=== PATIENT | male | born 1970 | race Caucasian/White ===

== ENCOUNTER 2021-05-31 10:48 | Outpatient (CLI) | payer MEDICARE, SELFPAY ==
[2021-05-31 11:28] VITALS: BP 129/78; PULSE 100; RESP 20; TEMP 39; O2SAT 93; BMI 36.6
[2021-05-31 11:56] VITALS: BP 121/72; PULSE 90; RESP 20; O2SAT 92
[2021-05-31 12:59] VITALS: BP 119/75; PULSE 87; RESP 20; TEMP 36.6; O2SAT 92
== END 2021-05-31 10:49 | disposition home or self-care (01) ==
LOC: OPS 10:51
PROVIDERS: PCP Family Medicine; Visit Provider Family Medicine
DX: U07.1 COVID-19 (principal)
CPT/HCPCS: 96365

== ENCOUNTER 2022-11-04 13:02 | Outpatient (CLI) | payer MEDICARE, SELFPAY | END 2022-11-04 13:03 | disposition home or self-care (01) | PROVIDERS: PCP Family Medicine; Visit Provider Nurse Practitioner Family | DX: A54.9 Gonococcal infection, unspecified (principal); A74.9 Chlamydial infection, unspecified | CPT/HCPCS: 87491; 87591 ==

== ENCOUNTER 2023-12-10 23:15 | Emergency (ER) | payer MEDICARE, SELFPAY ==
[2023-12-10 23:21] VITALS: BP 125/89; PULSE 76; RESP 24; TEMP 36.6; O2SAT 95; BMI 36.6
--- NOTE | 2023-12-10 23:32 | ECG_ITS ---
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 Measurements Intervals [place] Rate: 76 P: 75 [place]: 173 QRS: 11 QRSD: 94 T: 60 QT: 362 QTc: 409 Interpretive Statements SINUS RHYTHM Compared to ECG 09/26/2017 05:04:31 Sinus bradycardia no longer present Electronically Signed On 12-11-2023 11:25:58 CDT by Abrahan Flores M.D. [id number]
--- NOTE | 2023-12-10 23:32 | XRR_ITS ---
PROCEDURE INFORMATION: Exam: XR Chest Exam date and time: 12/10/2023 11:35 PM Age: 53 years old Clinical indication: Chest pressure; Patient HX: C/O chest pain TECHNIQUE: Imaging protocol: Radiologic exam of the chest. Views: 1 view. COMPARISON: CR XR chest 1V [id number] 09/25/2017 11:28 PM FINDINGS: Lungs: Minimal left lower lobe opacity could represent minimal atelectasis.. No consolidation. Pleural spaces: Unremarkable. No pleural effusion. No pneumothorax. Heart/Mediastinum: The cardiomediastinal silhouette is stable in appearance. Bones/joints: Unremarkable. XR/XR chest 1V portable [id number] IMPRESSION: No acute radiographic findings in the chest.
[2023-12-11] VITALS (9 sets, daily range): BP systolic 88–135; BP diastolic 54–87; PULSE 52–76; RESP 9–18; O2SAT 90–95
--- NOTE | 2023-12-11 00:03 | ED_ITS ---
HPI - Chest Pain 2 General: Chief Complaint: Chest Pain Stated Complaint: Chest Pain Time Seen by Provider: 12/10/23 23:32 History of Present Illness: 53-year-old male patient with no prior h istory of coronary disease. He presents with left-sided chest pain radiating to his left arm. This been going on since this afternoon he said. It seemed to let up for a while, but came back this evening. It was much worse while getting gas tonight. The patient was breathing heavy because of the pain. He felt some numbness to his face, and says that he passed out for a second and some people at the gas station helped him up. He has not had pain like this before. It seems to be worse with breathing. He denies significant cough. He denies vomiting. He denies lower extremity swelling. Associated symptoms: Reports dyspnea and syncope; Deny abdominal pain, fever(s), nausea, palpitations or vomiting Review of Systems 2 Const: Denies: fever(s), chills or body aches Eyes: Denies: change in vision Card: Reports: chest pain and syncope; Denies: palpitations Resp: Reports: dyspnea; Denies: productive cough, non-productive cough or wheezing GI: Denies: abdominal pain, nausea, vomiting, diarrhea or hematochezia Skin/Breast: Denies: rash Neuro: Reports: dizziness; Denies: headache(s), weakness in extremities or confusion Physical Exam 2 Const: GENERAL APPEARANCE: cooperative and anxious; not frail appearing HENMT: COMMON NORMALS: normocephalic, atraumatic and Normal external nose present HEAD & SCALP: normocephalic and atraumatic FACE & SINUS: normal facial exam and face symmetric NOSE: Normal external nose present Eye: COMMON NORMALS: Equal, round and reactive pupils present and EOMs intact bilaterally PUPIL: Yes Equal, round and reactive pupils present Neck/C-Spine: GENERAL: Yes trachea midline Chest: CHEST: Yes Symmetrical chest wall rise and No tenderness Resp: COMMON NORMALS: normal respiratory effort, No retractions, No use of accessory muscles and clear to auscultation bilaterally AUSCULTATION: clear to auscultation bilaterally Cardio: COMMON NORMALS: regular rate and regular rhythm RATE: regular rate RHYTHM: regular rhythm GI: COMMON NORMALS: Normal to inspection, nondistended, normoactive bowel sounds present Extremity: COMMON NORMALS: no pedal edema Neuro: THERESA COMA SCALE: document GCS findings Theresa coma scale eye opening: Spontaneous [place] coma scale verbal response: Orientated Theresa coma scale motor response: Obey commands Theresa coma scale total score: 15 S ENSORY EXAM: Yes extremities (intact) Psych: COMMON NORMALS: speech normal SPEECH: Yes normal speech Skin: COMMON NORMALS: no rashes or lesions noted GENERAL SKIN EXAM: no rashes or lesions noted Course 2 Vital Signs: Vital signs: Vital Signs Temperature 97.8 F 12/10/23 23:21 Pulse Rate 58 L 12/11/23 05:24 Respiratory Rate 9 L 12/11/23 05:24 Blood Pressure 108/69 12/11/23 05:24 Pulse Oximetry 95 12/11/23 05:24 Oxygen Delivery Me thod Nasal Cannula 12/11/23 05:24 Oxygen Flow Rate 2 12/11/23 05:24 MDM - Chest Pain Medical Decision Making 53-year-old male with pleuritic type left upper chest pain. He has had a cough and some congestion. He is mildly hypoxic on exam at times, but is admittedly sleepy and has a history of sleep apnea. He is nontachycardic. His blood pressure is 111/63. Saturations currently 95% on 2 L. His CBC is normal. His BMP is not remarkable. Liver enzymes not remarkable. Baseline troponin was 16 with a delta of -0.2 at 2h and no significant change at 6h. EKGs x2 are normal. Urinalysis is not helpful. LDH and CK are normal. His D-dimer is nondetectable. His BNP is nondetectable. Chest x-ray is nonacute. CTA of the chest was performed due to ongoing problems with mild hypoxia and pleuritic pain. There is no pericardial effusion. No significant coronary calcification. No clot. No dissection. Lungs are read as clear, but there are pneumonitis changes present. He will be treated for pneumonitis. Steroids, abx, inhaler, pain medication for symptoms. Lab Data 12/10/23 23:35 12/10/23 23:35 Radiology Impressions Chest X-Ray 12/10/23 23:32 IMPRESSION: No acute radiographic findings in the chest. Chest CTA 12/11/23 03:22 IMPRESSION: No pulmonary embolism identified. Laboratory Results WBC 9.19 10^3/uL (3.29-11.43) 12/10/23 23:35 RBC 5.15 10^6/uL (3.85-5.65) 12/10/23 23:35 Hgb 15.70 g/dL (11.27-16.99) 12/10/23 23:35 Hct 45.9 % (37-53) 12/10/23 23:35 MCV 89.1 fl (82-101) 12/10/23 23:35 MCH 30.5 pg (27-33) 12/10/23 23:35 MCHC 34.2 g/dL (30-55) 12/10/23 23:35 RDW 13.1 % (12.1-15.1) 12/10/23 23:35 Plt Count 190 10^3/cmm (157-399) 12/10/23 23:35 MPV 10.9 fL (7.4-10.4) H 12/10/23 23:35 Neut % (Auto) 69.9 % 12/10/23 23:35 Lymph % (Auto) 22.7 % 12/10/23 23:35 [place] % (Auto) 6.2 % 12/10/23 23:35 Eos % (Auto) 0.4 % 12/10/23 23:35 Baso % (Auto) 0.5 % 12/10/23 23:35 Neut # (Auto) 6.41 10^3/uL (1.8-7.7) 12/10/23 23:35 Lymph # (Auto) 2.1 10^3/uL (0.8-4.8) 12/10/23 23:35 [place] # (Auto) 0.6 10^3/uL (0.2-0.9) 12/10/23 23:35 Eos # (Auto) 0.0 10^3/uL (0.0-0.8) 12/10/23 23:35 Baso # (Auto) 0.1 10^3/uL (0.0-0.1) 12/10/23 23:35 Nucleated RBC % (auto) 0 % 12/10/23 23:35 Nucleated RBCs # 0.0 /100WBC 12/10/23 23:35 PT 13.80 SECONDS (12.1-14.9) 12/10/23 23:35 INR 1.03 (0.8-1.2) 12/10/23 23:35 APTT 26.5 SECONDS (23.9-36.7) 12/10/23 23:35 D-Dimer <= 0.27 ug/mLFEU (0-0.59) 12/11/23 00:06 Specimen Type Arterial 12/11/23 03:40 Sample Site Radial, right 12/11/23 03:40 ABG pH 7.36 (7.35-7.45) 12/11/23 03:40 ABG pCO2 48.1 mmHg (35-45) H 12/11/23 03:40 ABG pO2 66.2 mmHg (80.0-100.0) L 12/11/23 03:40 ABG PO2/FiO2 Ratio 0 12/11/23 03:40 ABG HCO3 27.0 mmol/L (22-26) H 12/11/23 03:40 ABG Base Excess 0.8 mmol/L (-2.0-2.0) 12/11/23 03:40 [place] Test Pos 12/11/23 03:40 Hematocrit 46.7 % (42-52) 12/11/23 03:40 O2 Delivery Device None 12/11/23 03:40 FiO2 21.0 % 12/11/23 03:40 Hat Lining Paster ID [email or web address] 12/11/23 03:40 Sodium 141 mmol/L (136-145) 12/10/23 23:35 Potassium 4.4 mmol/L (3.5-5.1) 12/10/23 23:35 Chloride 108 mmol/L (98-107) H 12/10/23 23:35 Carbon Dioxide 21 mmol/L (22-29) L 12/10/23 23:35 Anion Gap 16.4 (5-19) 12/10/23 23:35 BUN 15 mg/dL (6-20) 12/10/23 23:35 Creatinine 0.9 mg/dL (0.7-1.2) 12/10/23 23:35 GFR Calculation 87.9 mL/min (90-130) L 12/10/23 23:35 Glucose 106 mg/dL (65-115) 12/10/23 23:35 POC Glucose 97 mg/dL (70-110) 12/11/23 00:02 Calculated Osmolality 293 mOsm/kg (285-295) 12/10/23 23:35 Calcium 9.0 mg/dL (8.5-10.5) 12/10/23 23:35 Total Bilirubin 0.4 mg/dL (0.15-1.2) 12/10/23 23:35 AST 13 U/L (0-40) 12/10/23 23:35 ALT 16 U/L (0-41) 12/10/23 23:35 Alkaline Phosphatase 62 U/L (40-130) 12/10/23 23:35 Lactate Dehydrogenase 148 U/L (135-225) 12/11/23 01:28 Creatine Kinase 96 U/L (39-308) 12/11/23 01:28 Troponin T Baseline 16 ng/L (0-15) H 12/10/23 23:35 Troponin T 120 Minute 15.80 ng/L (0-15) H 12/11/23 01:28 Delta Troponin T -0.20 ABS# (0-10) L 12/11/23 01:28 Troponin T Hi Sens 6Hr 15.73 ng/L (0-15) H 12/11/23 05:24 Troponin T Hi Sens 6Hr Delta -0.27 ng/L (0-12) L 12/11/23 05:24 NT-Pro-B Natriuret Pep < 36 pg/mL (0-125) 12/10/23 23:35 Total Protein 7.0 g/dL (6.6-8.7) 12/10/23 23:35 Albumin 4.3 g/dL (3.5-5.2) 12/10/23 23:35 Globulin 2.7 g/dL (1.3-4.6) 12/10/23 23:35 Urine Color Yellow (Yellow) 12/11/23 01:22 Urine Appearance Clear (CLEAR) 12/11/23 01:22 Urine pH 5 (5-7) 12/11/23 01:22 Ur Specific [place] 1.020 (1.005-1.030) 12/11/23 01:22 Urine Protein Neg (Negative) 12/11/23 01:22 Urine Glucose (UA) Norm (Normal) 12/11/23 01:22 Urine Ketones 1+ (Negative) H 12/11/23 01:22 Urine Blood Neg (Negative) 12/11/23 01:22 Urine Nitrate Negative (Negative) 12/11/23 01:22 Urine Bilirubin 1+ (Negative) H 12/11/23 01:22 Urine Urobilinogen Neg mg/dL (Negative) 12/11/23 01:22 Ur Leukocyte Esterase Trace (Negative) H 12/11/23 01:22 Urine RBC 0-4 /hpf (0-2) H 12/11/23 01:22 Urine WBC 5-10 /hpf (0-5) H 12/11/23 01:22 Ur Squamous Epith Cells 0-4 /hpf (0-5) H 12/11/23 01:22 Amorphous Sediment Not Reportable 12/11/23 01:22 Urine Bacteria 1+ /hpf (NONE) H 12/11/23 01:22 Urine Mucus 1+ /hpf 12/11/23 01:22 Ethyl Alcohol < 10 mg/dL (0-10) 12/10/23 23:35 All radiology interpretation(s) finalized by discharge Discharge Plan Discharge Patient Disposition: Home Clinical Impression: Pleurisy, Pneumonitis Condition: Stable Prescriptions: New hydrocodone-acetaminophen 5-325 mg tablet 1 tab PO Q8H PRN (Reason: pain) Qty: 7 0RF Medrol (Steve) 4 mg tablets,dose pack See Rx Instructions .ROUTE .COMPLEX Qty: 21 0RF Rx Instructions: orally per package directions albuterol sulfate 90 mcg/actuation HFA aerosol inhaler 2 inh INHALATION Q4H PRN (Reason: shortness of breath or wheezing) Qty: 6.7 1RF doxycycline hyclate 100 mg tablet 100 mg PO BID 7 Days Qty: 14 0RF Discharge Orders: Discharge ED (Routine); Ordered 12/11/23 Ordered By: Brady Hernández Patient Instructions: Pneumonitis (ED), Opioid Safety, Pain Management Activity Restrictions/Additional Instructions: Medications as directed. Use the albuterol inhaler every 4 hours while awake scheduled for the first 48 hours, then as needed following. Return for fever despite 2-3 more doses of antibiotics, worsening pain despite treatment, worsening shortness of breath despite treatment, any other concerning symptoms. Coding Level of Care Code ED Learning And Development Consultant for Idalmis Bush
[2023-12-11 00:04] LABS: Basophils # 0.1 10^3/uL (0.0-0.1); Basophils % 0.5 %; Eosinophils % 0.4 %; Hematocrit 45.9 % (37-53); Lymphocytes # 2.1 10^3/uL (0.8-4.8); Lymphocytes % 22.7 %; Mean Corpuscular HGB Conc 34.2 g/dL (30-55); Mean Corpuscular Hemoglobin 30.5 pg (27-33); Mean Corpuscular Volume 89.1 fl (82-101); Mean Platelet Volume 10.9 fL (7.4-10.4); Monocytes # 0.6 10^3/uL (0.2-0.9); Monocytes % 6.2 %; Neutrophils # 6.41 10^3/uL (1.8-7.7); Neutrophils % 69.9 %; Nucleated Red Blood Cells % 0 %; Platelet Count 190 10^3/cmm (157-399); Red Blood Count 5.15 10^6/uL (3.85-5.65); Red Cell Distribution Width 13.1 % (12.1-15.1); White Blood Count 9.19 10^3/uL (3.29-11.43)
[2023-12-11 00:06] LABS: Glucose Point of Care 97 mg/dL (70-110)
[2023-12-11 00:10] LABS: INR 1.03 (0.8-1.2)
[2023-12-11 00:11] LABS: Partial Thromboplastin Time 26.5 SECONDS (23.9-36.7)
[2023-12-11] MEDS: aspirin 325 mg Tablet PO (00:11)
[2023-12-11] MEDS: lidocaine 2% viscous 15 ML, aluminum-mag hydrox-simethicon 30 ML, sucralfate oral liq 1 GM PO (00:12)
[2023-12-11 00:15] LABS: Troponin(5th) Baseline 16 ng/L (0-15)
[2023-12-11] MEDS: ondansetron 2 mg/ML SDV 2 mL 4 MG IVP (00:15)
[2023-12-11] MEDS: morphine 4 mg/mL SDV 1 mL IVP ×2 (00:17→01:53)
[2023-12-11 00:26] LABS: Alanine Aminotransferase 16 U/L (0-41); Albumin Level 4.3 g/dL (3.5-5.2); Alkaline Phosphatase 62 U/L (40-130); Anion Gap 16.4 (5-19); Aspartate Amino Transferase 13 U/L (0-40); Blood Urea Nitrogen 15 mg/dL (6-20); Carbon Dioxide 21 mmol/L (22-29); Chloride 108 mmol/L (98-107); Creatinine Clr Calc Pharmacy 126.8075; Globulin 2.7 g/dL (1.3-4.6); Glomerular Filtration Rate 87.9 mL/min (90-130); Glucose 106 mg/dL (65-115); NT Pro B Type Natriuretic Pept < 36 pg/mL (0-125); Osmolality Calculated 293 mOsm/kg (285-295); Potassium 4.4 mmol/L (3.5-5.1); Sodium 141 mmol/L (136-145); Total Bilirubin 0.4 mg/dL (0.15-1.2)
[2023-12-11 00:27] LABS: Alcohol Level < 10 mg/dL (0-10)
[2023-12-11 00:30] LABS: D Dimer <= 0.27 ug/mLFEU (0-0.59)
[2023-12-11] MEDS: nitroglycerin 0.4 mg sublingual Tablet 0.400000000000000022 MG SUBLINGUAL (00:58)
--- NOTE | 2023-12-11 01:32 | ECG_ITS ---
[facility] Test Date: 2023-12-11 Pat Name: Elmer Camacho Department: Room: Gender: Male Flagger: : 1970 Requested By: Terrence Diggs Order Number: [id number] Sigala MD: Abrahan Flores M.D. Measurements Intervals [place] Rate: 69 P: 77 [place]: 171 QRS: -1 QRSD: 93 T: 56 QT: 384 QTc: 414 Interpretive Statements SINUS RHYTHM Compared to ECG 12/10/2023 23:17:36 No significant changes Electronically Signed On 12-11-2023 11:26:22 CDT by Abrahan Flores M.D. [id number]
[2023-12-11 02:03] LABS: Protein Urine Neg (Negative); Urine Appearance Clear (CLEAR); Urine Color Yellow (Yellow); pH Urine 5 (5-7)
[2023-12-11 02:04] LABS: Add Urine Microscopic? YES; Bacteria Urine 1+ /hpf; Bilirubin Urine 1+ (Negative); Blood Urine Neg (Negative); Glucose Urine UA Norm (Normal); Ketones Urine 1+ (Negative); Leukocyte Esterase Urine Trace (Negative); Mucus Urine 1+ /hpf; Nitrate Urine Negative (Negative); RBC Urine 0-4 /hpf (0-2); Squamous Epithelial Cell Urine 0-4 /hpf (0-5); Urobilinogen Urine Neg (Negative)
[2023-12-11] MEDS: ketorolac 30 mg/mL INJ IVP (02:37)
[2023-12-11] MEDS: sodium chloride 0.9% 1,000 ML 999 ML IV (03:18)
--- NOTE | 2023-12-11 03:22 | CTR_ITS ---
PROCEDURE INFORMATION: Exam: CTA Chest With Contrast Exam date and time: 12/11/2023 3:48 AM Age: 53 years old Clinical indication: Shortness of breath; Left-sided; Patient HX: Left apical chest pain with persistent mild hypoxia. TECHNIQUE: Imaging protocol: Computed tomographic angiography of the chest with contrast. Exam focused on the arteries. 3D rendering (Not supervised by radiologist): MIP and/or 3D reconstructed images were created by the technologist. Radiation optimization: All CT scans at this facility use at least one of these dose optimization techniques: automated exposure control; mA and/or kV adjustment per patient size (includes targeted exams where dose is matched to clinical indication); or iterative reconstruction. Contrast material: OMNI 350; Contrast volume: 66 ml; Contrast route: INTRAVENOUS (IV); COMPARISON: CR (CHEST, ) 12/10/2023 11:35 PM RADIATION DOSE METRICS: Total DLP (mGy-cm): 459.8 FINDINGS: Pulmonary arteries: No pulmonary embolism identified. Aorta: The aorta is normal in caliber. Lungs: The lungs are clear and without focal consolidation. Pleural spaces: No pneumothorax. No pleural effusion. Heart: The heart is within normal limits for size. No pericardial effusion is seen. Coronary arteries: Trace coronary artery calcifications noted. Lymph nodes: Unremarkable. Bones/joints: Multilevel degenerative changes in the spine. Soft tissues: Unremarkable. CT/CT angio chest PE protcl [id number] IMPRESSION: No pulmonary embolism identified.
[2023-12-11 03:45] LABS: ABG PCO2 48.1 mmHg (35-45); ABG PH Result 7.36 (7.35-7.45); Arterial Blood Gas Hematocrit 46.7 % (42-52); Base Excess ABG 0.8 mmol/L (-2.0-2.0); Blood Gas Allen Test Pos; Blood Gas Sample Site Radial, right; Blood Gas Sample Type Arterial; PO2 ABG 66.2 mmHg (80.0-100.0); PO2 FiO2 Ratio Arterial Blood 0
[2023-12-11] MEDS: iohexol 350 mg/mL 500 mL Btl (per mL) IV (03:59)
[2023-12-11 04:20] LABS: Creatine Phosphokinase 96 U/L (39-308); Lactate Dehydrogenase 148 U/L (135-225)
[2023-12-11] MEDS: methylPREDNISolone sod succ 125 mg/2 mL INJ IVP (04:42)
[2023-12-11] MEDS: cefTRIAXone 1,000 MG in sodium chloride 0.9% (plus) 50 ML 100 MG IV (04:45)
[2023-12-11 05:49] LABS: Troponin 5 6HR 15.73 ng/L (0-15)
[2023-12-11 05:50] LABS: Troponin 5 6HR Delta -0.27 ng/L (0-12)
== END 2023-12-11 06:08 | disposition home or self-care (01) ==
PROVIDERS: Nurse Practitioner Family; Emergency Provider Emergency Medicine
DX: R09.1 Pleurisy (principal); J98.4 Other disorders of lung
CPT/HCPCS: 36415; 36416; 36600; 71045; 71275; 80053; 80307; 81001; 82550; 82803; 82962; 83615; 83880; 84484; 85025; 85378; 85610; 85730; 93005; 96365; 96375; 96376; 99285; J0696; J1885; J2270; J2405; J2930; J7030; Q9967